=== PATIENT | male | born 1985 | race African-American/Black ===

== ENCOUNTER 2016-10-04 22:13 | Emergency (ER) | payer MEDICAID ==
[~2016-10-04] VITALS: Ht 177.8 cm; Wt 118.6 kg
[~2016-10-04 22:13] MED LIST: LISI1TAB7 PO
[2016-10-04 22:15] VITALS: BP 149/92
== END 2016-10-04 22:46 | disposition home or self-care (01) ==
LOC: ED 22:41
DX: Z76.0 Encounter for issue of repeat prescription (principal); I10 Essential (primary) hypertension; F12.90 Cannabis use, unspecified, uncomplicated
CPT/HCPCS: 99283